=== PATIENT | male | born 1985 | race African-American/Black ===

== ENCOUNTER 2021-12-28 11:41 | Emergency (ER) | payer SELFPAY ==
--- NOTE | 2021-12-28 12:42 | ER ---
Nurse's Notes [facility] Name: Immanuel Wiggins Jr Age: 36 yrs Sex: Male : 1985 Arrival Date: 12/28/2021 Time: 11:42 Bed 12 Private MD: Diagnosis: Headache Presentation: 12/28 11:53 Chief complaint: Patient states: "I woke up at 4am with a real bad headache and I went ab2 to work and they sent me here to get checked out." Pt denies any n/v/d or dizziness. Pt denies any trauma to head. Pt states his head is throbbing. Coronavirus screen: Vaccine status: Patient reports being unvaccinated. Client denies travel out of the [place] in the last 14 days. At this time, the client does not indicate any symptoms associated with coronavirus-19. Ebola Screen: Patient negative for fever greater than or equal to 101.5 degrees Fahrenheit, and additional compatible Ebola Virus Disease symptoms Patient denies exposure to infectious person. Patient denies travel to an Ebola-affected area in the 21 days before illness onset. No symptoms or risks identified at this time. Initial Sepsis Screen: Does the patient meet any 2 criteria? No. Patient's initial sepsis screen is negative. Does the patient have a suspected source of infection? No. Patient's initial sepsis screen is negative. Risk Assessment: Do you want to hurt yourself or someone else? Patient reports no desire to harm self or others. Onset of symptoms is unknown. 11:53 Method Of Arrival: Ambulatory ab2 11:53 Acuity: JOHN 4 ab2 Triage Assessment: 11:55 Headache History: The patient has had previous headaches and this one is similar to ab2 previous episodes. General: Appears in no apparent distress. comfortable, Behavior is calm, cooperative, appropriate for age. Pain: Complains of pain in head Pain currently is 8 out of 10 on a pain scale. Pain began 4am. Pain: Also complains of inability to work. Neuro: No deficits noted. 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 Gait is steady, Speech is normal, Facial symmetry appears normal, Reports headache. Cardiovascular: No deficits noted. Denies chest pain, shortness of breath, Patient's skin is warm and dry. Respiratory: No deficits noted. Airway is patent Respiratory effort is even, unlabored, Respiratory pattern is regular, symmetrical. Historical: - Allergies: 11:55 No Known Allergies; ab2 - PMHx: 11:55 None; ab2 - PSHx: 11:55 None; ab2 - Immunization history:: Adult Immunizations up to date. - Social history:: Smoking status: Patient reports the use of cigarette tobacco products, smokes one-half pack cigarettes per day. Screenin:40 Abuse screen: Denies threats or abuse. Denies injuries from another. Nutritional ss screening: No deficits noted. Tuberculosis screening: Never had TB. Fall Risk None identified. Assessment: 12:40 Reassessment: Pt reports that he had a headache, 7/10 while at work, but after taking ss Advil liquidgels, he has no pain at this time. General: Appears in no apparent distress. comfortable, Behavior is calm, cooperative. General: Denies fever, feeling ill, fatigue, chills. Pain: Denies pain. Neuro: Level of Consciousness is awake, alert, obeys commands, Oriented to person, place, time, situation. Cardiovascular: Capillary refill < 3 seconds is brisk in bilateral fingers. Respiratory: Airway is patent Respiratory effort is even, unlabored, Respiratory pattern is regular, symmetrical. GI: No signs and/or symptoms were reported involving the gastrointestinal system. EENT: Nares are clear Oral mucosa is moist. Derm: Skin is intact, is healthy with good turgor, Skin is dry, Skin is pink, warm \\T\\ dry. normal. Musculoskeletal: Circulation, motion, and sensation intact. Range of motion: intact in all extremities, Swelling absent. Vital Signs: 11:53 BP 123 / 79; Pulse 76; Resp 17; Temp 98.3(TE); Pulse Ox 98% on R/A; Weight 69.85 kg; ab2 Height 5 ft. 8 in. (172.72 cm); Pain 7/10; 11:53 Body Mass Index 23.42 (69.85 kg, 172.72 cm) ab2 ED Course: 11:42 Patient arrived in ED. as 11:55 Triage completed. ab2 11:56 Arm band placed on left wrist. ab2 12:27 Camacho Evangelista PA is PHCP. [facility] 12:27 Ayan Hein MD is Attending Physician. [facility] 12:40 Adia Dunn, RN is Primary Nurse. 12:40 Patient has correct armband on for positive identification. Bed in low position. 12:40 No provider procedures requiring assistance completed. 12:49 Patient did not have IV access during this emergency room visit. Administered Medications: No medications were administered Outcome: 12:42 Discharge ordered by MD. [facility] 12:49 Discharged to home ambulatory. 12:49 Condition: good 12:49 Discharge instructions given to patient, Instructed on discharge instructions, follow up and referral plans. Demonstrated understanding of instructions, follow-up care. 12:50 Patient left the ED. Signatures: Camacho Evangelista PA PA [facility] Kristen James Shelby, RN RN JesseniaConrad gongora ab2
--- NOTE | 2021-12-28 12:42 | EDPHYS ---
Physician Documentation [facility] Name: Immanuel Wiggins Jr Age: 36 yrs Sex: Male : 1985 Arrival Date: 12/28/2021 Time: 11:42 Bed 12 Private MD: ED Physician Ayan Hein HPI: 12/28 12:37 This 36 yrs old Black Male presents to ER via Ambulatory with complaints of Headache. [facility] 12:37 The patient complains of pain to the head. Onset: The symptoms/episode began/occurred jmm gradually, at 06:00. Associated signs and symptoms: Pertinent negatives: there are no associated signs or symptoms. altered mental status, dizziness, fever, malaise, nausea, neck stiffness, paresthesias, Photophobia rash, sinus congestion, sinus tenderness, vision changes, vision loss, vomiting, weakness, vertigo. Headache History: The patient has had previous headaches and this one is similar to previous episodes. The symptoms are alleviated by over the counter pain medication, OTC NSAIDS. The patient has experienced similar episodes in the past, several times. Historical: - Allergies: 11:55 No Known Allergies; ab2 - PMHx: 11:55 None; ab2 - PSHx: 11:55 None; ab2 - Immunization history:: Adult Immunizations up to date. - Social history:: Smoking status: Patient reports the use of cigarette tobacco products, smokes one-half pack cigarettes per day. ROS: 12:37 Constitutional: Negative for fever, chills, and weight loss, Cardiovascular: Negative jmm for chest pain, palpitations, and edema, Respiratory: Negative for shortness of breath, cough, wheezing, and pleuritic chest pain. 12:37 Neuro: Positive for headache. 12:37 All other systems are negative. Exam: 12:37 Constitutional: This is a well developed, well nourished patient who is awake, alert, jmm and in no acute distress. Head/Face: atraumatic. Eyes: EOMI, no conjunctival erythema appreciated ENT: Moist Mucus Membranes Neck: Trachea midline, Supple Chest/axilla: Normal chest wall appearance and motion. Cardiovascular: Regular rate and rhythm. No edema appreciated Respiratory: Normal respirations, no respiratory distress appreciated Abdomen/GI: Non distended, soft Back: Normal ROM Skin: General appearance color normal 12:37 Musculoskeletal/extremity: ROM: intact in all extremities. 12:37 Skin: Appearance: Color: normal in color. 12:37 Neuro: Orientation: is normal, Mentation: is normal, Memory: is normal, Motor: is normal, Sensation: is normal, Gait: is steady. 12:37 Psych: Behavior/mood is pleasant, cooperative. Vital Signs: 11:53 BP 123 / 79; Pulse 76; Resp 17; Temp 98.3(TE); Pulse Ox 98% on R/A; Weight 69.85 kg; ab2 Height 5 ft. 8 in. (172.72 cm); Pain 7/10; 11:53 Body Mass Index 23.42 (69.85 kg, 172.72 cm) ab2 MDM: 12:37 Patient medically screened. [facility] 12:40 Data reviewed: vital signs, nurses notes. Counseling: I had a detailed discussion with sherine the patient and/or guardian regarding: the historical points, exam findings, and any diagnostic results supporting the discharge/admit diagnosis, the need for outpatient follow up, to return to the emergency department if symptoms worsen or persist or if there are any questions or concerns that arise at home. 12:42 ED course: Patient has had similar headaches in the past. Headache was relieved with [facility] [id number] Advil. Patient has no neck stiffness, normal vital signs, normal neuro exam, I do not currently suspect meningitis or subarachnoid hemorrhage. Patient otherwise given strict return precautions. Patient understood agrees plan of care.. Administered Medications: No medications were administered Disposition: 17:13 Co-signature as Attending Physician, Ayan Hein MD I agree with the assessment and kdr plan of care. Disposition Summary: 12/28/21 12:42 Discharge Ordered Location: Home [facility] Condition: Stable [facility] Diagnosis - Headache [facility] Followup: [facility] - With: Private Physician - When: 2 - 3 days - Reason: Recheck today's complaints, Continuance of care, Re-evaluation by your physician Discharge Instructions: - Discharge Summary Sheet [facility] - General Headache Without Cause [facility] Forms: - Medication Reconciliation Form [facility] - Thank You Letter gaurav - Antibiotic Education gaurav - Work release form [facility] - Prescription Opioid Use gaurav Signatures: Ayan Hein MD MD [facility] Mickail, Camacho, PA PA jmm Bleininger, Conrad ab2
[2021-12-28 16:27] VITALS: BP 123/79; TEMP 98.3; O2SAT 98
== END 2021-12-28 12:50 | disposition home or self-care (01) ==
LOC: ER 11:41
DX: R51.9 Headache, unspecified (principal); F17.210 Nicotine dependence, cigarettes, uncomplicated
CPT/HCPCS: 99281

== ENCOUNTER 2022-02-28 19:36 | Emergency (ER) | payer SELFPAY ==
--- OUTSIDE RECORDS SUMMARY | 2022-02-28 19:40 | XMS REPORT | Continuity of Care Document ---
:1985 Author Organization [facility] t Address [address] [place] [address] Care Team Providers Name Role Phone PCP, DOES NOT HAVE A Primary Care Physician Unavailable EBRAHIM Attending Clinician Unavailable Ebrahim HAND SCRAPER Attending Clinician Problems Condition Condition Condition Status Onset Resolution Last Treating Co mments Source Name Details Category Date Date Treatment Clinician Date Fall down Fall down Disease Active 2013-09 Uni vers embankment embankment 0-20 [place] [facility] Forearm Forearm Disease Active 2013-09 Univers fracture fracture 0-18 ity of 00:00: [place] 00 [facility] Allergies, Adverse Reactions, Alerts Allergy Allergy Status Severity Reaction(s) Onset Inactive Treating Comm ents Source Name Type Date Date Clinician NO KNOWN Drug Active Univers ALLERGIE Class ity of S [facility] Social History Social Habit Start Date Stop Date Quantity Comments Source Exposure to 2022-02-15 2022-02-25 Not sure [facility] SARS-CoV-2 00:00:00 20:12:00 [facility] [place] (event) Tobacco use and 2014-07-10 2014-07-10 Current user [facility] [place] exposure 00:00:00 00:00:00 Medical Branch Sex Assigned At [birth year] [facility] [place] 00:[facility]00 00:00:00 [facility] Smoking Status Start Date Stop Date Source Current every day smoker 2014-07[facility]10 [facility]:00[facility]00 [facility] Ordered Filled Start Stop Current Ordering Indication Dosage Frequency Signature Comments Components Source Medication Medication Date Date Medication? Clinician (SIG) Name Name heidi 2013-09- No 1{tbl} Take 1 Tab Univers en-codeine 0-20 -05 by mouth ity of (TYLENOL 00:00: 00:00 every 6 [place] #3) 300-30 00 :00 (six) Medical mg tablet hours as Branch needed for Pain (scale 4-6) or Pain (scale 7-10). Vital Signs Vital Name Observation Time Observation Value Comments Source Systolic blood 2022-02-26 01:13:00 135 mm[Hg] [facility] Diastolic blood 2022-02-26 01:13:00 70 mm[facility]Hg[facility] 2022-02-26 01:13:00 83 /min [facility] Body temperature 2022-02-26 01:13:00 37.22 Jessika [facility] Respiratory rate 2022-02-26 01:13:00 16 /min [facility] Body height 2022-02-26 01:13:[address] [facility] Body weight 2022-02-26 01:13:[address] [facility] BMI 2022-02-26 01:13:00 22.90 kg/m2 [facility] Oxygen saturation in 2022-02-26 01:13:00 99 /min [facility] Arterial blood by [facility] Pulse oximetry Branch Procedures Procedure Date / Time Performed Performing Clinician Sour e NOTICE OF PRIVACY 2022-02-26 01:03:11 Doctor Unassigned, No Univ [facility] PRACTICES Name [facility] CONSENT/REFUSAL FOR 2022-02-26 01:02:31 Doctor Unassigned, No [facility] AND Name Medical Branch TREATMENT Encounters Start End Encounter Admission Attending Care Care Encounter Source Date/Time Date/Time Type Type Clinicians Facility Department ID 2022-02-25 2022-02-25 Emergency X ALTHEA FOUNTAIN ERT [id number] Univers 20:15:00 20:21:00 BOBY sam [facility] 2022-02-25 2022-02-25 Emergency [facility] [id number] Univers 20:15:00 20:21:00 Boby ANDERSON [id number] i [id number] [facility] [id number] [facility] 084 Branch Results This patient has no known results.
--- NOTE | 2022-02-28 19:52 | EDPHYS ---
Physician Documentation [facility] Name: Immanuel Wiggins Jr Age: 37 yrs Sex: Male : 1985 Arrival Date: 02/28/2022 Time: 19:39 Bed Waiting Private MD: ED Physician Elias Rowland HPI: 02/28 19:48 This 37 yrs old Black Male presents to ER via Ambulatory with complaints of rn nausea/vomiting. 19:48 The patient presents to the emergency department with nausea, vomiting. Onset: The rn symptoms/episode began/occurred this morning. Possible causes: unknown, sick contacts, by co-worker(s). The symptoms are aggravated by nothing. The symptoms are alleviated by OTC meds. Associated signs and symptoms: Pertinent positives: nausea, vomiting, Pertinent negatives: abdominal pain, diarrhea, fever, GI bleeding. Severity of symptoms: At their worst the symptoms were mild in the emergency department the symptoms have resolved. The patient has not experienced similar symptoms in the past. The patient has not recently seen a physician. Pt reports woke up today with vomiting, + sick co-worker with "stomach virus", took OTC meds for nausea, and now symptoms resolved. No fever. NO runny nose or congestion. No abd pain. Has felt fine rest of day. States work told him to come for clearance note. Otherwise states would not be here given her has no symptoms. . Historical: - Allergies: 19:47 No Known Allergies; ld1 - Home Meds: 19:47 None [Active]; ld1 - PMHx: 19:47 None; ld1 - PSHx: 19:47 None; ld1 - Immunization history:: Adult Immunizations up to date, Client reports having NOT received the Covid vaccine. - Social history:: Smoking status: Patient denies any tobacco usage or history of. Patient/guardian denies using alcohol. - Family history:: not pertinent. - Hospitalizations: : No recent hospitalization is reported. ROS: 19:48 Constitutional: Negative for fever, chills, and weight loss, Eyes: Negative for injury, rn pain, redness, and discharge, Neck: Negative for injury, pain, and swelling, Cardiovascular: Negative for chest pain, palpitations, and edema, Respiratory: Negative for shortness of breath, cough, wheezing, and pleuritic chest pain, Abdomen/GI: + nausea/vomiting (resolved), neg for blood in stool, neg for abd pain Back: Negative for injury and pain, : Negative for injury, bleeding, discharge, and swelling, MS/Extremity: Negative for injury and deformity, Skin: Negative for injury, rash, and discoloration, Neuro: Negative for headache, weakness, numbness, tingling, and seizure. Exam: 19:48 Constitutional: This is a well developed, well nourished patient who is awake, alert, rn and in no acute distress. Head/Face: Normocephalic, atraumatic. Eyes: Periorbital areas with no swelling, redness, or edema. ENT: MMM Cardiovascular: Regular rate and rhythm. No pulse deficits. Respiratory: No increased work of breathing, no retractions or nasal flaring. Abdomen/GI: soft, non-tender, non-distended Skin: Warm, dry with normal turgor. Normal color with no rashes, no lesions, and no evidence of cellulitis. MS/ Extremity: Pulses equal, no cyanosis. Neurovascular intact. Full, normal range of motion. Equal circumference. Neuro: Awake and alert, GCS 15, oriented to person, place, time, and situation. Cranial nerves II-XII grossly intact. Motor strength 5/5 in all extremities. Sensory grossly intact. Cerebellar exam normal. Normal gait. Vital Signs: 19:46 BP 140 / 79; Pulse 81; Resp 18; Temp 99.3(TE); Pulse Ox 98% on R/A; Weight 68.04 kg; ld1 Height 5 ft. 9 in. (175.26 cm); Pain 0/10; 19:46 Body Mass Index 22.15 (68.04 kg, 175.26 cm) ld1 MDM: 19:41 Patient medically screened. rn 19:48 Differential diagnosis: viral gastroenteritis, gastroenteritis, viral syndrome. Data rn reviewed: vital signs, nurses notes, and as a result, I will discharge patient. Counseling: I had a detailed discussion with the patient and/or guardian regarding: the historical points, exam findings, and any diagnostic results supporting the discharge/admit diagnosis, the need for outpatient follow up, to return to the emergency department if symptoms worsen or persist or if there are any questions or concerns that arise at home. Special discussion: I discussed with the patient/guardian in detail that at this point there is no indication for admission to the hospital. It is understood, however, that if the symptoms persist or worsen the patient needs to return immediately for re-evaluation. ED course: Pt asymptomatic, states has eaten dinner and held it down, here only for clearance, declines prescription nausea medication.. 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
--- NOTE | 2022-02-28 19:52 | ER ---
Nurse's Notes [facility] Name: Immanuel Wiggins Jr Age: 37 yrs Sex: Male : 1985 Arrival Date: 02/28/2022 Time: 19:39 Bed Waiting Private MD: Diagnosis: Nausea with vomiting, unspecified Presentation: 02/28 19:46 Chief complaint: Patient states: N/V since this morning. Denies abdominal pain. ld1 Coronavirus screen: At this time, the client does not indicate any symptoms associated with coronavirus-19. Ebola Screen: No symptoms or risks identified at this time. Initial Sepsis Screen: Does the patient meet any 2 criteria? No. Patient's initial sepsis screen is negative. Does the patient have a suspected source of infection? No. Patient's initial sepsis screen is negative. Risk Assessment: Do you want to hurt yourself or someone else? Patient reports no desire to harm self or others. Onset of symptoms was February 28, 2022. 19:46 Method Of Arrival: Ambulatory ld1 19:46 Acuity: JOHN 3 ld1 Triage Assessment: 19:47 General: Appears in no apparent distress. comfortable, Behavior is calm, cooperative, ld1 appropriate for age. Pain: Denies pain. EENT: No signs and/or symptoms were reported regarding the EENT system. Neuro: Level of Consciousness is awake, alert, obeys commands, Oriented to person, place, time, situation. Cardiovascular: Capillary refill < 3 seconds Patient's skin is warm and dry. Respiratory: Airway is patent Respiratory effort is even, unlabored. GI: Abdomen is flat, non-distended, Patient currently denies abdominal pain. : No signs and/or symptoms were reported regarding the genitourinary system. Derm: No signs and/or symptoms reported regarding the dermatologic system. Musculoskeletal: No signs and/or symptoms reported regarding the musculoskeletal system. Historical: - Allergies: 19:47 No Known Allergies; ld1 - Home Meds: 19:47 None [Active]; ld1 - PMHx: 19:47 None; ld1 - PSHx: 19:47 None; ld1 - Immunization history:: Adult Immunizations up to date, Client reports having NOT received the Covid vaccine. - Social history:: Smoking status: Patient denies any tobacco usage or history of. Patient/guardian denies using alcohol. - Family history:: not pertinent. - Hospitalizations: : No recent hospitalization is reported. Screenin:48 Abuse screen: Denies threats or abuse. Denies injuries from another. Nutritional ld1 screening: No deficits noted. Tuberculosis screening: No symptoms or risk factors identified. Fall Risk None identified. Assessment: 19:48 Reassessment: Patient appears in no apparent distress at this time. See triage ld1 assessment. Pt denies abdominal pain, denies N/V at this time. Reporting "I feel good, I just need a doctors note to return to work." ERP in triage assessing pt at this time. Vital Signs: 19:46 BP 140 / 79; Pulse 81; Resp 18; Temp 99.3(TE); Pulse Ox 98% on R/A; Weight 68.04 kg; ld1 Height 5 ft. 9 in. (175.26 cm); Pain 0/10; 19:46 Body Mass Index 22.15 (68.04 kg, 175.26 cm) ld1 ED Course: 19:39 Patient arrived in ED. ja2 19:41 Elias Rowland MD is Attending Physician. rn 19:47 Triage completed. ld1 19:47 Arm band placed on right wrist. ld1 19:48 Patient has correct armband on for positive identification. Call light in reach. Pulse ld1 ox on. NIBP on. Door closed. Noise minimized. 19:48 No provider procedures requiring assistance completed. Patient did not have IV access ld1 during this emergency room visit. Administered Medications: No medications were administered Medication: 19:48 VIS not applicable for this client. ld1 Outcome: 19:52 Discharge ordered by . rn 20:04 Patient left the ED. ld1 Signatures: Elias Rowland MD MD rn Dibbern, Lauren, RN RN [email or web address] Meghna Arriaza
[2022-02-28 20:13] VITALS: BP 140/79; TEMP 99.3; O2SAT 98
== END 2022-02-28 20:04 | disposition home or self-care (01) ==
LOC: ER 19:36
DX: R11.2 Nausea with vomiting, unspecified (principal)
CPT/HCPCS: 99282

== ENCOUNTER 2022-03-14 18:18 | Emergency (ER) | payer SELFPAY ==
--- OUTSIDE RECORDS SUMMARY | 2022-03-14 18:20 | XMS REPORT | Continuity of Care Document ---
:1985 Author Organization [facility] t Address [address] [place] [address] Care Team Providers Name Role Phone Pcp, Does Not Have A Primary Care Physician RIDDLE Attending Clinician Unavailable Panaca ACNP Attending Clinician EBRAHIM Attending Clinician Unavailable Ebrahim COKE DRAWER HAND Attending Clinician Problems Condition Condition Condition Status Onset Resolution Last Treating Co mments Source Name Details Category Date Date Treatment Clinician Date Fall down Fall down Disease Active 2013-09 Uni vers embankment embankment 0-20 it y of , initial , initial 00:00: [facility] s encounter encounter 00 [facility] Forearm Forearm Disease Active 2013-09 Univers fracture fracture 0-18 ity of 00:00: [address] Allergies, Adverse Reactions, Alerts Allergy Allergy Status Severity Reaction(s) Onset Inactive Treating Comm ents Source Name Type Date Date Clinician NO KNOWN Drug Active Univers ALLERGIE Class ity of S [facility] Social History Social Habit Start Date Stop Date Quantity Comments Source Exposure to 2022-03-02 2022-03-12 Not sure [facility] SARS-CoV-2 00:00:00 20:19:00 Medical Branch (event) Tobacco use and 2014-07-10 2014-07-10 Current user Univers ity of [place] exposure 00:00:00 00:00:00 Medical Branch Sex [facility]igned At [birth year] [facility] [place] 00:00:00 00:00:00 Medical Branch Smoking Status Start Date Stop Date Source Current every day smoker 2014-07-10 [facility]:00[facility] Ordered Filled Start Stop Current Ordering Indication Dosage Frequency Signature Comments Components Source Medication Medication Date Date Medication? Clinician (SIG) Name Name No known No Univers medications 6-20 ity of 21:07: [place] 35 Medical Branch acetaminoph 2013-09- No 1{tbl} Take 1 Tab Univers en-codeine 0- 06-05 by mouth ity of (TYLENOL 00:00: 00:00 every 6 [place] #3) 300-30 00 :00 (six) Medical mg tablet hours as Branch needed for Pain (scale 4-6) or Pain (scale 7-10). Vital Signs Vital Name Observation Time Observation Value Comments Source Systolic blood 2022-03-13 01:21:00 122 mm[Hg] Univer [facility] of [facility] Diastolic blood 2022-03-13 01:21:00 80 [facility]Hg[facility] 2022-03-13 01:21:00 85 /min [facility] Body temperature 2022-03-13 01:21:00 37.72 Jessika [facility] Respiratory rate 2022-03-13 01:21:00 18 /min [facility] Body height 2022-03-13 01:21:00 172.7 cm [facility] Body weight 2022-03-13 01:21:00 68.04 kg [facility] BMI 2022-03-13 01:21:00 22.81 kg/m2 [facility] Oxygen saturation in 2022-03-13 01:21:00 99 /min University of Arterial blood by [facility] Pulse oximetry Branch Systolic blood 2022-02-26 01:13:00 135 mm[Hg] Univer sity of pressure [facility] Diastolic blood 2022-02-26 01:13:00 70 mm[Hg] Unive rsity of pressure [place] [facility] Heart rate 2022-02-26 01:13:00 83 /min [facility] Body temperature 2022-02-26 01:13:00 37.22 Jessika [facility] Respiratory rate 2022-02-26 01:13:00 16 /min [facility] Body height 2022-02-26 01:13:00 172.7 [facility] weight 2022-02-26 01:13:00 68.312 kg [facility] BMI 2022-02-26 01:13:00 22.90 kg/m2 [facility] Oxygen saturation in 2022-02-26 01:13:00 99 /min [facility] Arterial blood by [facility] Pulse oximetry Branch Procedures Procedure Date / Time Performed Performing Clinician Sour e RAPID STREP SCREEN 2022-03-13 01:25:00 [facility] FOR GROUP A Medical Branch CONSENT/REFUSAL FOR 2022-03-13 01:01:44 Doctor Unassigned, [facility] AND Name Medical Branch TREATMENT NOTICE OF PRIVACY 2022-02-26 01:03:11 Doctor Unassigned, No [facility] PRACTICES Name Medical Branch CONSENT/REFUSAL FOR 2022-02-26 01:02:31 Doctor Unassigned, No [facility] AND Name Medical Branch TREATMENT Encounters Start End Encounter Admission Attending Care Care Encounter Source Date/Time Date/Time Type Type Clinicians Facility Department ID 2022-03-12 2022-03-12 [facility] [id number] Univers 20:26:00 21:15:00 DOROTEO snowden of [facility] 2022-03-12 2022-03-12 [facility] [id number] Univers 20:26:00 21:15:00 Doroteo ANDERSON [id number] Ricky [id number] [facility] [id number] [facility] 084 Branch 2022-02-25 2022-02-25 Emergency [facility] [id number] Univers 20:15:00 20:21:00 BOBY sam [facility] 2022-02-25 2022-02-25 Emergency [facility] [id number] Univers 20:15:00 20:21:00 Boby ANDERSON [id number] [facility] [id number] [facility] [id number] [place] [id number] Branch Results This patient has no known results.
--- NOTE | 2022-03-14 19:01 | EDPHYS ---
Physician Documentation [facility] Name: Immanuel Wiggins Jr Age: 37 yrs Sex: Male : 1985 Arrival Date: 03/14/2022 Time: 18:20 Bed Waiting Private MD: ED Physician Elias Rowland HPI: 03/14 18:54 This 37 yrs old Black Male presents to ER via Ambulatory with complaints of Needs Covid cp Test and Drs Note. 18:54 Patient reports he was at work yesterday and c/o headache. No symptoms today but work cp sent him to ED for COVID-19 test. Patient reports sore throat several days ago, was seen at [facility] and tested for strep that returned negative. Historical: - Allergies: 18:52 No Known Allergies; iw ROS: 18:56 Eyes: Negative for injury, pain, redness, and discharge. cp 18:56 Constitutional: Negative for body aches, chills, fever, poor PO intake. 18:56 ENT: Negative for drainage from ear(s), ear pain, sore throat, difficulty swallowing, difficulty handling secretions. 18:56 Respiratory: Negative for cough, shortness of breath, wheezing. 18:56 Abdomen/GI: Negative for abdominal pain, nausea, vomiting, and diarrhea. 18:56 Neuro: Negative for headache. 18:56 All other systems are negative. Exam: 18:57 Head/Face: Normocephalic, atraumatic. cp 18:57 Constitutional: The patient appears in no acute distress, alert, awake, non-toxic, well developed, well nourished. 18:57 Eyes: Periorbital structures: appear normal, Conjunctiva: normal, no exudate, no injection, Lids and lashes: appear normal, bilaterally. 18:57 ENT: External ear(s): are unremarkable, Nose: is normal, Mouth: Lips: moist, Oral mucosa: pink and intact, moist, Posterior pharynx: Airway: no evidence of obstruction, patent. 18:57 Neck: ROM/movement: is normal, is supple, without pain, no range of motions limitations, Lymph nodes: no appreciated lymphadenopathy. 18:57 Chest/axilla: Inspection: normal. 18:57 Cardiovascular: Rate: normal. 18:57 Respiratory: the patient does not display signs of respiratory distress, Respirations: normal, no use of accessory muscles, no retractions, labored breathing, is not present, Breath sounds: are clear throughout, no decreased breath sounds, no stridor, no wheezing. 18:57 Abdomen/GI: Exam negative for discomfort, distension, guarding, Inspection: abdomen appears normal. Vital Signs: 18:50 BP 129 / 81; Pulse 75; Resp 16; Temp 99.0; Pulse Ox 100% on R/A; iw MDM: 18:58 Differential Diagnosis flu, strep throat, COVID-19, migraine. Data reviewed: vital cp signs, nurses notes, and as a result, I will discharge patient. Counseling: I had a detailed discussion with the patient and/or guardian regarding: the historical points, exam findings, and any diagnostic results supporting the discharge/admit diagnosis, to return to the emergency department if symptoms worsen or persist or if there are any questions or concerns that arise at home. 19:00 Patient medically screened. cp 03/14 18:42 Order name: SARS-COV-2 RT PCR (Document "Date of Onset" if Symptomatic) rn Administered Medications: No medications were administered Disposition Summary: 03/14/22 19:00 Discharge Ordered Location: Home cp Problem: new cp Symptoms: have improved cp Condition: Stable cp Diagnosis - Encounter for screening for other viral diseases - COVID-19 cp Followup: cp - With: Private Physician - When: 1 - 2 days - Reason: Worsening of condition Discharge Instructions: - Form - Return To Work ds4 - Discharge Summary Sheet cp - COVID-19 Frequently Asked Questions cp - 3 Vazquez Steps to Take While Waiting for Your COVID-19 Test Result - [facility] cp Forms: - Medication Reconciliation Form cp - Work release form ds4 - Thank You Letter cp - Antibiotic Education cp - Prescription Opioid Use cp Addendum: 03/16/2022 07:12 Co-signature as Attending Physician, Elias Rowland MD. r n Signatures: Dispatcher [employer] Cindy Tamayo RN RN iw Nieto, Roman, MD MD rn Page, Corey, PA PA cp
--- NOTE | 2022-03-14 19:01 | ER ---
Nurse's Notes [facility] Name: Immanuel Wiggins Jr Age: 37 yrs Sex: Male : 1985 Arrival Date: 03/14/2022 Time: 18:20 Bed Waiting Private MD: Diagnosis: Encounter for screening for other viral [id number] Presentation: 03/14 18:50 Chief complaint: Patient states: had a headache at work yesterday and was told he iw needed to get tested for COVID , still has a headache. Coronavirus screen: Client presents with at least one sign or symptom that may indicate coronavirus-19. Ebola Screen: Patient negative for fever greater than or equal to 101.5 degrees Fahrenheit, and additional compatible Ebola Virus Disease symptoms Patient denies exposure to infectious person. Patient denies travel to an Ebola-affected area in the 21 days before illness onset. No symptoms or risks identified at this time. Initial Sepsis Screen: Does the patient meet any 2 criteria? No. Patient's initial sepsis screen is negative. Does the patient have a suspected source of infection? No. Patient's initial sepsis screen is negative. Risk Assessment: Do you want to hurt yourself or someone else? Patient reports no desire to harm self or others. Onset of symptoms was March 14, 2022. 18:50 Method Of Arrival: Ambulatory iw 18:50 Acuity: JOHN 4 iw Historical: - Allergies: 18:52 No Known Allergies; iw Screenin:54 Abuse screen: Denies threats or abuse. Denies injuries from another. Nutritional iw screening: No deficits noted. Tuberculosis screening: No symptoms or risk factors identified. Fall Risk None identified. Assessment: 18:54 General: Appears in no apparent distress. Behavior is calm, cooperative. Pain: iw Complains of pain in head. Neuro: Level of Consciousness is awake, alert, obeys commands. Cardiovascular: Patient's skin is warm and dry. Respiratory: Respiratory effort is even, unlabored, Respiratory pattern is regular, symmetrical. 19:15 Reassessment: Will call back with COVID results. Pt states he did not wants to wait for ss results. Vital Signs: 18:50 BP 129 / 81; Pulse 75; Resp 16; Temp 99.0; Pulse Ox 100% on R/A; iw ED Course: 18:20 Patient arrived in ED. rg4 18:47 Scott Carrizales PA is PHCP. cp 18:47 Elias Rowland MD is Attending Physician. cp 18:52 Triage completed. iw 18:52 Arm band placed on. iw 18:54 No provider procedures requiring assistance completed. Patient did not have IV access iw during this emergency room visit. 19:14 Patient has correct armband on for positive identification. ss Administered Medications: No medications were administered Medication: 18:54 VIS not applicable for this client. iw Outcome: 19:00 Discharge ordered by MD. cp 19:14 Discharged to home ambulatory. ss 19:14 Condition: good 19:14 Discharge instructions given to patient, Instructed on discharge instructions, follow up and referral plans. Demonstrated understanding of instructions, follow-up care. 19:16 Patient left the ED. ss Signatures: Cindy Freeman, RN RN Adia Dunn RN RN Scott Carrizales PA PA cp Garcia, Rubi rg4
[2022-03-14 20:11] VITALS: BP 129/81; TEMP 99; O2SAT 100
== END 2022-03-14 19:16 | disposition home or self-care (01) ==
LOC: ER 18:18
DX: Z20.822 Contact with and (suspected) exposure to COVID-19 (principal)
CPT/HCPCS: 99281; U0003

== ENCOUNTER 2022-04-04 07:56 | Emergency (ER) | payer SELFPAY ==
--- NOTE | 2022-04-04 10:23 | ER ---
Nurse's Notes [facility] Name: Immanuel Wiggins Jr Age: 37 yrs Sex: Male : 1985 Arrival Date: 04/04/2022 Time: 07:57 Bed 9 Private MD: Diagnosis: Unspecified internal derangement of right knee Presentation: 04/04 08:05 Chief complaint: Patient states: hurt right knee after running while playing basketball iw and he stopped abruptly. Coronavirus screen: At this time, the client does not indicate any symptoms associated with coronavirus-19. Ebola Screen: Patient negative for fever greater than or equal to 101.5 degrees Fahrenheit, and additional compatible Ebola Virus Disease symptoms Patient denies exposure to infectious person. Patient denies travel to an Ebola-affected area in the 21 days before illness onset. No symptoms or risks identified at this time. Initial Sepsis Screen: Does the patient meet any 2 criteria? No. Patient's initial sepsis screen is negative. Does the patient have a suspected source of infection? No. Patient's initial sepsis screen is negative. Risk Assessment: Do you want to hurt yourself or someone else? Patient reports no desire to harm self or others. Onset of symptoms was April 03, 2022. 08:05 Method Of Arrival: Ambulatory iw 08:05 Acuity: JOHN 4 iw Triage Assessment: 10:08 General: Appears. Injury Description: from running and stopping suddenly playing tw2 basketball. Historical: - Allergies: 08:10 No Known Allergies; iw - Immunization history:: Adult Immunizations. - Social history:: Smoking status: . Screenin:09 Abuse screen: Denies threats or abuse. Denies injuries from another. Nutritional iw screening: No deficits noted. Tuberculosis screening: No symptoms or risk factors identified. Fall Risk None identified. Assessment: 08:09 General: Appears in no apparent distress. Behavior is calm, cooperative. Pain: iw Complains of pain in right knee. Neuro: Level of Consciousness is awake, alert, obeys commands, Oriented to person, place, time, situation, Moves all extremities. Cardiovascular: Patient's skin is warm and dry. Respiratory: Respiratory effort is even, unlabored, Respiratory pattern is regular. Derm: Skin is intact, is healthy with good turgor. Musculoskeletal: Range of motion: limited in right knee. 10:32 Reassessment: Patient appears in no apparent distress at this time. No changes from tw2 previously documented assessment. Patient and/or family updated on plan of care and expected duration. Pain level reassessed. Patient is alert, oriented x 3, equal unlabored respirations, skin warm/dry/pink. Vital Signs: 08:05 BP 120 / 79; Pulse 78; Resp 16; Temp 98.4; Pulse Ox 100% on R/A; iw 10:07 Height 5 ft. 8 in. (172.72 cm) (R); tw2 ED Course: 07:57 Patient arrived in ED. am2 08:02 Kedar Mata NP is PHCP. pm1 08:02 Scott Escalante MD is Attending Physician. pm1 08:07 Triage completed. iw 08:07 Arm band placed on. iw 09:26 Knee Right 3 View XRAY In Process Unspecified. EDMS 09:58 Cindy Freeman RN is Primary Nurse. iw 09:58 Bed in low position. Call light in reach. tw2 10:22 Rancho Guzmán MD is Referral Physician. pm1 10:32 No provider procedures requiring assistance completed. IV discontinued, intact, tw2 bleeding controlled, No redness/swelling at site. Pressure dressing applied. Administered Medications: No medications were administered Medication: 10:07 VIS not applicable for this client. tw2 Outcome: 10:22 Discharge ordered by . pm1 10:32 Discharged to home via wheelchair, with crutches, with family. tw2 10:32 Condition: stable 10:32 Discharge instructions given to patient, Instructed on discharge instructions, follow up and referral plans. no drinking with medication, no driving heavy equipment, medication usage, safety practices, Demonstrated understanding of instructions, follow-up care, medications, crutch walking, Prescriptions given X 1. 10:33 Patient left the ED. tw2 Signatures: Dispatcher [employer] EDMS Cindy Freeman RN RN iw Kedar Mata NP FINANCE INTERN pm1 Sandra Nieves RN RN tw2 Adrianne Matute am2 Corrections: (The following items were deleted from the chart) 08:07 08:05 Resp 16bpm; Pulse Ox 100% RA; Temp 98.4F; iw iw
--- NOTE | 2022-04-04 10:23 | EDPHYS ---
Physician Documentation [facility] Name: Immanuel Wiggins Jr Age: 37 yrs Sex: Male : 1985 Arrival Date: 04/04/2022 Time: 07:57 Bed 9 Private MD: ED Physician Scott Escalante HPI: 04/04 08:16 This 37 yrs old Black Male presents to ER via Ambulatory with complaints of Knee Injury.pm1 08:16 The patient presents with an injury. The complaints affect the right knee. Context: The pm1 problem was sustained at a sports field or court, resulted from sudden stopping and planting with his right leg while playing basketball, the patient is able to ambulate, with mild difficulty, Problem is a result from a previous injury: No. Onset: The symptoms/episode began/occurred yesterday. Modifying factors: The symptoms are alleviated by remaining still, the symptoms are aggravated by bending knee. Associated signs and symptoms: Pertinent negatives numbness, swelling, tingling. Treatment prior to arrival includes: over the counter medications, NSAIDS. Severity of symptoms: in the emergency department the symptoms are unchanged. The patient has not experienced similar symptoms in the past. The patient has not recently seen a physician. Historical: - Allergies: 08:10 No Known Allergies; iw - Immunization history:: Adult Immunizations. - Social history:: Smoking status: . ROS: 08:16 Constitutional: Negative for fever, chills, and weight loss, Cardiovascular: Negative pm1 for chest pain, palpitations, and edema, Respiratory: Negative for shortness of breath, cough, wheezing, and pleuritic chest pain. 08:16 Skin: Negative for injury, rash, and discoloration, Neuro: Negative for headache, weakness, numbness, tingling, and seizure. 08:16 MS/extremity: Positive for pain, of the right knee, Negative for decreased range of motion, deformity. 08:16 All other systems are negative. Exam: 08:16 Constitutional: This is a well developed, well nourished patient who is awake, alert, pm1 and in no acute distress. Head/Face: Normocephalic, atraumatic. 08:16 Skin: Warm, dry with normal turgor. Normal color with no rashes, no lesions, and no evidence of cellulitis. 08:16 Cardiovascular: Exam negative for acute changes, Rate: normal, Rhythm: regular, Pulses: no pulse deficits are appreciated. 08:16 Respiratory: Exam negative for acute changes, respiratory distress, shortness of breath. 08:16 Musculoskeletal/extremity: Extremities: grossly normal except: noted in the right knee: Pain with valgus stress test, internal and external rotation to medial aspect of right knee. Negative drawer test, varus stress testing, There is no evidence of decreased ROM, deformity, ROM: full active range of motion, in the right knee, full passive range of motion, in the right knee. 08:16 Neuro: Exam negative for acute changes, Orientation: is normal, Mentation: is normal, Motor: moves all fours. Vital Signs: 08:05 BP 120 / 79; Pulse 78; Resp 16; Temp 98.4; Pulse Ox 100% on R/A; iw 10:07 Height 5 ft. 8 in. (172.72 cm) (R); tw2 MDM: 08:42 Patient medically screened. pm1 09:18 Data reviewed: vital signs. Data interpreted: Pulse oximetry: on room air is 100 %. pm1 Interpretation: normal. 10:16 ED course: Pending read from radiologist. Patient does not want to wait for official pm1 read. Clinically patient appears to have possible internal derangement of knee, MCL injury. Patient without any tenderness to anterior tibial spine. 10:19 Counseling: I had a detailed discussion with the patient and/or guardian regarding: the pm1 historical points, exam findings, and any diagnostic results supporting the discharge/admit diagnosis, radiology results, the need for outpatient follow up, for definitive care, a orthopedic surgeon, to return to the emergency department if symptoms worsen or persist or if there are any questions or concerns that arise at home. 10:25 ED course: [place] reviewed. pm1 04/04 08:13 Order name: Knee Right 3 View XRAY pm1 04/04 08:13 Order name: Knee Immobilizer; Complete Time: 10:26 pm1 04/04 08:13 Order name: Crutches; Complete Time: 10:26 pm1 Administered Medications: No medications were administered Disposition Summary: 04/04/22 10:22 Discharge Ordered Location: Home pm1 Problem: new pm1 Symptoms: have improved pm1 Condition: Stable pm1 Diagnosis - Unspecified internal derangement of right knee pm1 Followup: pm1 - With: Emergency Department - When: As needed - Reason: Worsening of condition Followup: pm1 - With: Rancho Guzmán MD - When: 2 - 3 days - Reason: Recheck today's complaints, Continuance of care, Re-evaluation by your physician Discharge Instructions: - Crutch Use, Adult pm1 - How to Use a Knee Immobilizer pm1 - Discharge Summary Sheet tw2 - Acute Knee Pain, Adult pm1 Forms: - Work release form tw2 - Medication Reconciliation Form pm1 - Thank You Letter pm1 - Antibiotic Education pm1 - Prescription Opioid Use pm1 Prescriptions: - Tylenol-Codeine #3 300 mg-30 mg Oral - take 2 tablet by ORAL route every 6 hours As needed; 20 tablet; Refills: 0, pm1 Product Selection Permitted Signatures: Dispatcher [employer] Cindy Tamayo RN RN iw Kedar Mata NP SOLUTION STRATEGIST pm1 Sandra Nieves RN RN tw2
[2022-04-04 10:37] VITALS: BP 120/79; TEMP 98.4; O2SAT 100
--- NOTE | 2022-04-04 10:43 | RAD REPORT ---
EXAM DESCRIPTION: RAD - Knee Right 3 View - 04/04/2022 9:25 am CLINICAL HISTORY: Right knee pain status post injury FINDINGS: Bony densities adjacent to the tibial tubercle likely are chronic since significant soft t issue swelling not seen. No acute fracture or dislocation If patient continues to have symptoms to suggest an occult fracture, ligamentous or meniscal injury t hen MRI would be recommended
== END 2022-04-04 10:33 | disposition home or self-care (01) ==
LOC: ER 07:56
DX: M23.91 Unspecified internal derangement of right knee (principal)

== ENCOUNTER 2022-04-10 13:51 | Emergency (ER) | payer SELFPAY ==
--- NOTE | 2022-04-10 15:26 | ER ---
Nurse's Notes [facility] Name: Immanuel Wiggins Jr Age: 37 yrs Sex: Male : 1985 Arrival Date: 04/10/2022 Time: 13:53 Bed Waiting Private MD: Diagnosis: Person with feared health complaint in whom no diagnosis is made Presentation: 04/10 14:14 Chief complaint: Recently seen for right knee pain, reports pain is better. Needs hb return to work note. Coronavirus screen: At this time, the client does not indicate any symptoms associated with coronavirus-19. Ebola Screen: No symptoms or risks identified at this time. Initial Sepsis Screen: Does the patient meet any 2 criteria? No. Patient's initial sepsis screen is negative. Does the patient have a suspected source of infection? No. Patient's initial sepsis screen is negative. Risk Assessment: Do you want to hurt yourself or someone else? Patient reports no desire to harm self or others. Onset of symptoms was April 10, 2022. 14:14 Method Of Arrival: Ambulatory hb 14:14 Acuity: JOHN 5 hb Triage Assessment: 14:15 General: Appears in no apparent distress. Behavior is calm, cooperative. Pain: Denies hb pain. Neuro: Level of Consciousness is awake, alert, obeys commands, Oriented to person, place, time, situation. Cardiovascular: Patient's skin is warm and dry. Respiratory: Respiratory effort is even, unlabored, Respiratory pattern is regular, symmetrical. Historical: - Allergies: 14:15 No Known Allergies; hb - Immunization history:: Adult Immunizations up to date. - Social history:: Smoking status: Patient denies any tobacco usage or history of. Vital Signs: 14:14 BP 114 / 72; Pulse 70; Resp 16; Temp 97.1; Pulse Ox 100% on R/A; Pain 0/10; hb ED Course: 13:53 Patient arrived in ED. mr 13:54 Camacho Evangelista PA is PHCP. sherine 13:54 Rei Gómez DO is Attending Physician. sherine 14:15 Triage completed. hb 14:15 Arm band placed on. hb Administered Medications: No medications were administered Outcome: 15:25 Discharge ordered by . sherine 16:59 Patient left the ED. hb Signatures: MicCamacho cisse PA PA jmm Rivera, Deborah mr Micheal, Leidy, RN RN hb
--- NOTE | 2022-04-10 15:26 | EDPHYS ---
Physician Documentation [facility] Name: Immanuel Wiggins Jr Age: 37 yrs Sex: Male : 1985 Arrival Date: 04/10/2022 Time: 13:53 Bed Waiting Private MD: ED Physician Rei Gómez HPI: 04/10 15:22 This 37 yrs old Black Male presents to ER via Ambulatory with complaints of Knee Pain. jmm 15:22 Onset: The symptoms/episode began/occurred gradually. Modifying factors: The symptoms jmm are alleviated by nothing. the symptoms are aggravated by nothing. Associated signs and symptoms: Pertinent negatives fever, numbness, swelling. The patient has not experienced similar symptoms in the past. This is a 37 year old male with no chronic medical conditions that presents to the ED with complaints of right knee pain. Patient was evaluated by ortho whom cleared the patient. Patient states his knee pain has completely resolved. . Historical: - Allergies: 14:15 No Known Allergies; hb - Immunization history:: Adult Immunizations up to date. - Social history:: Smoking status: Patient denies any tobacco usage or history of. ROS: 15:22 Constitutional: Negative for fever, chills, and weight loss, Cardiovascular: Negative jmm for chest pain, palpitations, and edema, Respiratory: Negative for shortness of breath, cough, wheezing, and pleuritic chest pain, Abdomen/GI: Negative for abdominal pain, nausea, vomiting, diarrhea, and constipation, MS/Extremity: Negative for injury and deformity. 15:22 All other systems are negative. Exam: 15:22 Constitutional: This is a well developed, well nourished patient who is awake, alert, jmm and in no acute distress. Head/Face: atraumatic. Eyes: EOMI, no conjunctival erythema appreciated ENT: Moist Mucus Membranes Neck: Trachea midline, Supple Chest/axilla: Normal chest wall appearance and motion. Cardiovascular: Regular rate and rhythm. No edema appreciated Respiratory: Normal respirations, no respiratory distress appreciated Abdomen/GI: Non distended Back: Normal ROM Skin: General appearance color normal 15:22 Musculoskeletal/extremity: FROM appreciated to the right knee, compartments are soft, NVI. 15:22 Skin: Appearance: Color: normal in color. 15:22 Neuro: Orientation: is normal, Mentation: is normal, Memory: is normal. 15:22 Psych: Behavior/mood is pleasant, cooperative. Vital Signs: 14:14 BP 114 / 72; Pulse 70; Resp 16; Temp 97.1; Pulse Ox 100% on R/A; Pain 0/10; hb MDM: 15:22 Data reviewed: vital signs, nurses notes. Counseling: I had a detailed discussion with sherine the patient and/or guardian regarding: the historical points, exam findings, and any diagnostic results supporting the discharge/admit diagnosis, the need for outpatient follow up, to return to the emergency department if symptoms worsen or persist or if there are any questions or concerns that arise at home. 15:25 Patient medically screened. jm Administered Medications: No medications were administered Disposition: 22:44 Co-signature as Attending Physician, Rei Gómez DO I was immediately available on-site ms3 in the Emergency Department for consultation in the care of the patient.. Disposition Summary: 04/10/22 15:25 Discharge Ordered Location: Home [facility] Condition: Stable [facility] Diagnosis - Person with feared health complaint in whom no diagnosis is made [facility] Followup: [facility] - With: Private Physician - When: 2 - 3 days - Reason: Recheck today's complaints, Continuance of care, Re-evaluation by your physician Discharge Instructions: - Discharge Summary Sheet [facility] Forms: - Work release form jmm - Medication Reconciliation Form [facility] - Thank You Letter [facility] - Antibiotic Education jm - Prescription Opioid Use [facility] Signatures: Camacho Evangelista PA PA jmm Baxter, Heather, RN RN Rei Ventura DO DO ms3
[2022-04-10 17:10] VITALS: BP 114/72; TEMP 97.1; O2SAT 100
== END 2022-04-10 16:59 | disposition home or self-care (01) ==
LOC: ER 13:51
DX: Z71.1 Person with feared health complaint in whom no diagnosis is made (principal); M25.561 Pain in right knee